=== PATIENT | female | born 1950 | race Caucasian/White ===

== ENCOUNTER → 2017-10-24 | Day surgery (SDC) | payer MEDICARE ==
--- NOTE | 2017-10-23 10:35 | Diagnostic Imaging Report ---
PROCEDURE: X-RAY CHEST, TWO VIEWS COMPARISON: None. INDICATIONS: PREOPERATIVE CHEST XRAY FOR FINGER SURGERY FINDINGS: LUNGS: No consolidations or edema. PLEURA: No effusions or pneumothorax. HEART \T\ MEDIASTINUM: The heart is within normal size-limits. BONES \T\ SOFT TISSUES: No acute findings. Degenerative changes of the thoracic spine with flowing osteophytosis. CONCLUSION: No acute thoracic abnormality. Gerard Cardenas D.O. Dictated by: Gerard Cardenas D.O. on 10/23/2017 at 10:34 Electronically approved by: Gerard Cardenas D.O. on 10/23/2017 at 10:34
[2017-10-23 10:40] LABS: BASOPHILS # (AUTO) 0.1 (0.0-0.1); BASOPHILS % 0.9 % (0.0-1.0); EOSINOPHILS # (AUTO) 0.1 (0.0-0.4); EOSINOPHILS % 1.4 % (0.0-6.0); HEMATOCRIT 39.2 % (34.2-44.1); LYMPHOCYTES # (AUTO) 3.1 (1.0-3.2); LYMPHOCYTES % 30.4 % (18.0-39.1); MEAN CORPUSCULAR HEMOGLOBIN 31.6 pg (28-32); MEAN CORPUSCULAR HGB CONC 33.2 g/dL (31-35); MEAN CORPUSCULAR VOLUME 95.4 fL (81-99); MONOCYTES # (AUTO) 0.7 (0.2-0.8); MONOCYTES % 6.4 % (4.4-11.3); NEUTROPHILS # (AUTO) 6.2 (2.1-6.9); NEUTROPHILS % 60.7 % (38.7-80.0); PLATELET COUNT 408 x10e3/uL (140-360); RED BLOOD COUNT 4.11 x10e6/uL (3.6-5.1); RED CELL DISTRIBUTION WIDTH 13.2 % (11.7-14.4)
[2017-10-23 11:00] LABS: ANION GAP 12.7 mmol/L (8-16); BLOOD UREA NITROGEN 9 mg/dL (7-26); BUN/CREATININE RATIO 12 (6-25); CALCIUM 9.7 mg/dL (8.4-10.2); CARBON DIOXIDE 28 mmol/L (22-29); CHLORIDE 100 mmol/L (98-107); CREATININE, SERUM 0.77 mg/dL (0.57-1.11); EST GLOMERULAR FILTRATION RATE > 60 ML/MIN (60-); GLUCOSE 129 mg/dL (74-118); POTASSIUM 4.7 mmol/L (3.5-5.1); SODIUM 136 mmol/L (136-145)
[~2017-10-24] MED LIST: AMLODIPINE BESYL5 MG PO; ATORVASTATIN CA40 MG PO; BREO INH; CLINDAMYCIN 600MG/D5W 50ML 50 ML IV ONE; DESFLURANE 240 ML BTL INH ONE; DEXAMETHASONE SOD PHOS INJ 4 MG/ML VIAL ONE; FENTANYL CITRATE/PF 100MCG/2 ML INJ ONE; GABAPENTIN300 MG PO; JANUVIA100 MG PO; LIDOCAINE HCL 2% LOCAL INJ 5 ML SDV VIAL INJ ONE; LOSARTAN POTASS50 MG PO; MECLIZINE HCL12.5 MG PO; METFORMIN HCL500 MG PO; MIDAZOLAM HCL 2 MG/2 ML VIAL ONE; OMEPRAZOLE40 MG PO; ONDANSETRON HCL INJ 2 MG/ML VIAL ONE; PROPOFOL IV EMULSION 10 MG/ML 20 ML VIAL ONE; PROZAC40 MG PO; TEMAZEPAM15 MG PO; TYLENOL WITH C1 EACH PO
--- OUTSIDE RECORDS SUMMARY | 2017-10-24 07:06 | XMS REPORT ---
Author Author [facility] Address Unknown Phone Unavailable Care Team Providers Care Aws Architect Name Role Phone KERI HWANG Unavailable Unavailable Problems This patient has no known problems. Allergies, Adverse Reactions, Alerts This patient has no known allergies or adverse reactions. Medications This patient has no known medications. Results Test Description Test Time Test Comments Text Results Atomic Results Result Comments CHEST 2 VIEWS [place] [address] Patient Name: ADRIA ALVAREZ MR #: [id number] : 1950 Age/Sex: 67/F Req #: [id number] Adm Physician: Ordered by: KERI HWANG MD Report #: [id number] Location: OR Room/Bed: Procedure: [id number] DX/ CHEST 2 VIEWS Exam Date: 10/23/17 Exam Time: 1015 REPORT STATUS: Signed PROCEDURE: X-RAY CHEST, TWO VIEWS COMPARISON: None. INDICATIONS: PREOPERATIVE CHEST XRAY FOR FINGER SURGERY FINDINGS: LUNGS: No consolidations or edema. PLEURA: No effusions or pneumothorax. HEART T MEDIASTINUM: The heart is within normal size- limits. BONES T SOFT TISSUES: No acute findings. Degenerative changes of the thoracic spine with flowing osteophytosis. CONCLUSION: No acute thoracic abnormality. Tray Cardenas D.O. Dictated by: Tray Cardenas D.O. on 10/23/2017 at 10:34 Electronically approved by: Tray Cardenas D.O. on 10/23/2017 at 10:34 Dictated By: TRAY CARDENAS DO 1034 Transcribed By: MAIKEL on 10/23/17 1034 COPY TO: KERI HWANG MD
--- NOTE | 2017-10-24 12:51 | Operative Report ---
DATE OF PROCEDURE: October 24, 2017 POLL WATCHER: Jam Huddleston PA-C The patient was brought to the operating room for induction of anesthesia. Throughout this case, my PA's assistance was necessary for retraction of soft tissue and positioning of the extremity. This allows for efficient and technically successful execution of the operation and is considered medically necessary. PREOPERATIVE DIAGNOSIS: Left 3rd trigger finger. POSTOPERATIVE DIAGNOSIS: Left 3rd trigger finger. PROCEDURE: Release of left 3rd trigger finger. INDICATIONS: The patient is a 67-year-old lady who has left 3rd trigger finger. She states that this prevents her from straightening her finger and causes her severe pain. She has failed conservative management and would like to proceed with a surgical release. The risks and benefits of the procedure have been explained. She states she understands and wishes to proceed. DESCRIPTION OF PROCEDURE: The patient was brought to the operating room and placed under general anesthetic. Her left upper extremity was prepped and draped in a sterile manner. A preoperative time out was performed. The extremity was exsanguinated and a proximal tourniquet was inflated to 250 mmHg. A transverse incision was made to over the distal palmar crease. The A1 jake was carefully exposed. Care was taken to avoid injury to the neurovascular bundle. The A1 jake was released sharply with a #15 blade surgical knife. This was completed with a pair of tenotomy scissors. The tendons were retracted from the wound to ensure no further stenosing tenosynovitis. The tendon was intact with very moderate abrading. The wound was irrigated and closed with interrupted nylon stitches. A sterile bandage was applied. She was extubated and transported to the recovery room in stable condition. There was no blood loss. All needle and sponge counts were correct. Job#: [id number] FARNAZ
== END | disposition home or self-care (01) ==
LOC: OR 07:04
PROVIDERS: ATTEND Specialist
DX: M65.332 Trigger finger, left middle finger (principal); J45.909 Unspecified asthma, uncomplicated; E11.9 Type 2 diabetes mellitus without complications; E78.5 Hyperlipidemia, unspecified; I25.2 Old myocardial infarction; R00.1 Bradycardia, unspecified; K21.9 Gastro-esophageal reflux disease without esophagitis; Z01.810 Encounter for preprocedural cardiovascular examination; Z01.812 Encounter for preprocedural laboratory examination; Z01.818 Encounter for other preprocedural examination; Z68.32 Body mass index [BMI] 32.0-32.9, adult; Z90.5 Acquired absence of kidney; Z87.442 Personal history of urinary calculi
CPT/HCPCS: 26055; 36415 ×2; 71046; 80048; 82948; 85025; 93005; J1100; J2001; J2250; J2405

== ENCOUNTER → 2018-02-13 | Day surgery (SDC) | payer MEDICARE ==
[2018-02-07 12:03] LABS: BASOPHILS # (AUTO) 0.1 (0.0-0.1); BASOPHILS % 0.9 % (0.0-1.0); EOSINOPHILS # (AUTO) 0.1 (0.0-0.4); EOSINOPHILS % 1.6 % (0.0-6.0); HEMATOCRIT 35.9 % (34.2-44.1); LYMPHOCYTES # (AUTO) 3.6 (1.0-3.2); LYMPHOCYTES % 40.3 % (18.0-39.1); MEAN CORPUSCULAR HEMOGLOBIN 31.7 pg (28-32); MEAN CORPUSCULAR HGB CONC 33.4 g/dL (31-35); MEAN CORPUSCULAR VOLUME 94.7 fL (81-99); MONOCYTES # (AUTO) 0.7 (0.2-0.8); MONOCYTES % 7.7 % (4.4-11.3); NEUTROPHILS # (AUTO) 4.4 (2.1-6.9); NEUTROPHILS % 49.3 % (38.7-80.0); PLATELET COUNT 359 x10e3/uL (140-360); RED BLOOD COUNT 3.79 x10e6/uL (3.6-5.1)
[2018-02-07 12:22] LABS: ANION GAP 10.3 mmol/L (8-16); BLOOD UREA NITROGEN 9 mg/dL (7-26); BUN/CREATININE RATIO 13 (6-25); CALCIUM 9.6 mg/dL (8.4-10.2); CARBON DIOXIDE 29 mmol/L (22-29); CHLORIDE 104 mmol/L (98-107); CREATININE, SERUM 0.72 mg/dL (0.57-1.11); EST GLOMERULAR FILTRATION RATE > 60 ML/MIN (60-); GLUCOSE 101 mg/dL (74-118); POTASSIUM 4.3 mmol/L (3.5-5.1); SODIUM 139 mmol/L (136-145)
--- NOTE | 2018-02-07 12:32 | Diagnostic Imaging Report ---
PROCEDURE:CHEST 2 VIEWS TECHNIQUE:PA and lateral chest INDICATION:Preoperative evaluation for right foot surgery COMPARISON:Patients [facility], , CHEST 2 VIEWS, 10/23/2017, 10:19. FINDINGS: Lungs are clear and symmetrically inflated. No pleural effusions. Normal heart size, mediastinal contour, and central vasculature. Mildly prominent right pericardial fat pad. Intact skeleton. CONCLUSION: No acute abnormality or interval change from October 2017. Dictated by: Car Vela M.D. on 02/07/2018 at 12:34 Electronically approved by: Car Vela M.D. on 02/07/2018 at 12:34
[~2018-02-13] MED LIST changes: +ACETAMINOPHEN 1000 MG/100 ML 100 ML IV ONE; +BACITRACIN 50,000 UNIT VIAL ONE; +BUPIVACAINE HCL 0.5% INJ 30 ML VIAL INJ ONE; -CLINDAMYCIN 600MG/D5W 50ML 50 ML IV ONE; +CLINDAMYCIN PHOS 900MG/ D5W 50 50 ML IV ONE; -DESFLURANE 240 ML BTL INH ONE; +NEOSTIGMINE 1 MG/ML 10ML VIAL ONE; +SEVOFLURANE INHAL SOLN 250 ML PEN BTL ONE
--- NOTE | 2018-02-13 14:25 | Operative Report ---
DATE OF PROCEDURE: February 13, 2018 PREOPERATIVE DIAGNOSES 1. Hallux rigidus, right foot 1st metatarsophalangeal joint. 2. 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 3. Hammertoe rigid, right foot. POSTOPERATIVE DIAGNOSES 1. Hallux rigidus, right foot 1st metatarsophalangeal joint. 2. 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 3. Hammertoe rigid, right foot. PROCEDURES 1. First metatarsophalangeal joint fusion, right foot. 2. Tenotomy and capsulotomy, 2nd metatarsophalangeal joint, right foot. 3. Arthrodesis of proximal interphalangeal joint, 2nd. 4. Use of posterior splint. PATHOLOGY: None. ANESTHESIA: General anesthetic. HEMOSTASIS: Pneumatic thigh tourniquet at 350 mmHg. ESTIMATED BLOOD LOSS: Less than 10 mL. MATERIALS 1. BIO4 Viable Bone Matrix, lot #[id number], 1 mL, expiration date 25 August 2019. 2. Smart Toe intramedullary arthrodesis implant, lot #[id number]. Date of expiration is going to be 01/01/2022. 3. Screws, 4.0 x 26 mm Fixos screws. 4. [place] MTP plate, 3.0 x 10 locking times 2, 3.0 x 12 locking times 1, 3.0 x 14 locking times 2. COMPLICATIONS: None. CONDITION: Stable. PROCEDURE IN DETAIL: Under mild sedation, the patient was brought to the operating room and placed on the operating table in the supine position. Following IV sedation, anesthesia was obtained with a general anesthetic. At this point, the right foot was scrubbed, prepped and draped in the usual aseptic manner. It was then lowered to the table. First MPJ fusion: Attention was then directed to the dorsal aspect of the right foot, where a linear incision was made overlying the 1st metatarsophalangeal joint. The incision was deepened down to the level of the capsule. Linear capsulotomies were performed. All of this was performed, taking care to retract or cauterize neurovascular structures as necessary. At this point, the MPJ was then exposed. There was noted to be a large amount of synovial tissue and a large amount of osteophyte, all surrounding the MPJ. There was no cartilage, and there were some subchondral cysts. At this point, the joint was prepared utilizing reamers in order to prepare the joint for arthrodesis. The joint was prepared through and through down to clean, viable, bleeding bone. The joint was then fenestrated. A 4.0 x 26 mm Fixos screw was then used for compression of the MTP plate. Five screws were also used. There was noted to be adequate compression clinically and with the use of intraoperative fluoroscopy. Position was also confirmed. Second MPJ tenotomy and capsulotomy: Attention was then directed to the 2nd MPJ. There was noted to be a contracture of the 2nd MPJ. The contracture was released, releasing the capsule at the 2nd MPJ. The extensor tendon was then lengthened. The contracture was then noted to be released. Arthrodesis, PIPJ, right 2nd: Attention was then directed to the PIPJ where a linear incision was made overlying the joint. The incision was deepened to the level of the tendon. The tendon was then tenotomized in a transverse fashion. The joint was then visualized utilizing an oscillating saw. The joint was then prepared for arthrodesis. Arthrodesis was performed with a Smart Toe implant, 19 mm. There was noted to be adequate compression clinically and with the use of intraop fluoroscopy and adequate alignment. All incisions were then flushed with copious amounts of normal sterile saline solution. At the MPJ fusion, BIO4, 1 mL, was then used to promote arthrodesis to the area. All areas were then closed, closing the deepest layer with 3-0 Vicryl, 4-0 Vicryl, and 4-0 nylon. A clean dressing was applied consisting of Adaptic ointment, 4 x 4's, Kerlix, Webril. A posterior splint was applied and was secured utilizing an Feng bandage. The tourniquet was deflated. There was noted to be hyperemic response to all the digits. The patient tolerated the procedure and the anesthesia well without complications and was transported to the recovery room with vital signs stable and vascular status intact to both feet. The patient will be discharged home when she meets criteria. She was given instructions to be strictly nonweightbearing, to ice and elevate the foot while at rest, to follow up with me in the office, and to call the office if any questions, concerns or any problems arise. Job#: [id number] MH
== END | disposition home or self-care (01) ==
LOC: OR 08:01
PROVIDERS: ATTEND Podiatrist Foot & Ankle Surgery
DX: M20.21 Hallux rigidus, right foot (principal); M21.271 Flexion deformity, right ankle and toes; M20.41 Other hammer toe(s) (acquired), right foot; M25.774 Osteophyte, right foot; M54.9 Dorsalgia, unspecified; H91.90 Unspecified hearing loss, unspecified ear; J45.909 Unspecified asthma, uncomplicated; G47.33 Obstructive sleep apnea (adult) (pediatric); E11.9 Type 2 diabetes mellitus without complications; I25.10 Atherosclerotic heart disease of native coronary artery without angina pectoris; I10 Essential (primary) hypertension; I48.91 Unspecified atrial fibrillation; K21.9 Gastro-esophageal reflux disease without esophagitis; F41.9 Anxiety disorder, unspecified; Z88.0 Allergy status to penicillin; Z87.891 Personal history of nicotine dependence; Z79.84 Long term (current) use of oral hypoglycemic drugs
CPT/HCPCS: 28270; 28285; 28750; 36415 ×2; 71046; 80048; 82948; 85025; 93005; C1713 ×3; J1100; J2001; J2250; J2405; J2710; 76001

== ENCOUNTER → 2018-10-23 | Day surgery (SDC) | payer MEDICARE ==
[2018-10-18 12:10] LABS: BASOPHILS # (AUTO) 0.1 (0.0-0.1); BASOPHILS % 0.9 % (0.0-1.0); EOSINOPHILS # (AUTO) 0.2 (0.0-0.4); EOSINOPHILS % 2.5 % (0.0-6.0); HEMATOCRIT 37.2 % (34.2-44.1); HEMOGLOBIN 12.2 g/dL (12.0-16.0); LYMPHOCYTES # (AUTO) 3.2 (1.0-3.2); LYMPHOCYTES % 32.3 % (18.0-39.1); MEAN CORPUSCULAR HEMOGLOBIN 31.7 pg (28-32); MEAN CORPUSCULAR HGB CONC 32.8 g/dL (31-35); MEAN CORPUSCULAR VOLUME 96.6 fL (81-99); MONOCYTES # (AUTO) 0.9 (0.2-0.8); MONOCYTES % 9.4 % (4.4-11.3); NEUTROPHILS # (AUTO) 5.3 (2.1-6.9); NEUTROPHILS % 54.7 % (38.7-80.0); PLATELET COUNT 374 x10e3/uL (140-360); RED BLOOD COUNT 3.85 x10e6/uL (3.6-5.1); RED CELL DISTRIBUTION WIDTH 13.9 % (11.7-14.4)
[2018-10-18 12:20] LABS: ANION GAP 14.7 mmol/L (8-16); BLOOD UREA NITROGEN 8 mg/dL (7-26); BUN/CREATININE RATIO 11 (6-25); CALCIUM 9.1 mg/dL (8.4-10.2); CARBON DIOXIDE 23 mmol/L (22-29); CHLORIDE 104 mmol/L (98-107); CREATININE, SERUM 0.74 mg/dL (0.57-1.11); EST GLOMERULAR FILTRATION RATE > 60 ML/MIN (60-); GLUCOSE 158 mg/dL (74-118); POTASSIUM 3.7 mmol/L (3.5-5.1); SODIUM 138 mmol/L (136-145)
[~2018-10-23] MED LIST changes: -ACETAMINOPHEN 1000 MG/100 ML 100 ML IV ONE; +ACETAMINOPHEN/CODEINE 300MG - 30MG TAB ONE; +ALENDRONATE SOD70 MG PO; -BACITRACIN 50,000 UNIT VIAL ONE; +BRIO PO; +BUPIVACAINE 0.25% 30ML SDV INJ ONE; -BUPIVACAINE HCL 0.5% INJ 30 ML VIAL INJ ONE; +CLINDAMYCIN 600MG / 50ML 50 ML IV ONE; -CLINDAMYCIN PHOS 900MG/ D5W 50 50 ML IV ONE; +MULTI-VITAMIN1 EACH PO; +NAPROXEN250 MG PO; -NEOSTIGMINE 1 MG/ML 10ML VIAL ONE; -ONDANSETRON HCL INJ 2 MG/ML VIAL ONE; +ONDANSETRON HCL INJ 2MG/ML 2ML 2 MG/ML VIAL ONE
[2018-10-23 13:25] VITALS: BP 130/80
--- NOTE | 2018-10-23 13:30 | Operative Report ---
DATE OF PROCEDURE: 10/23/2018 MAGNETIC LOCATER: Jam Huddleston PA-C PREOPERATIVE DIAGNOSIS: Left fourth trigger finger. POSTOPERATIVE DIAGNOSIS: Left fourth trigger finger. PROCEDURE: Release of left fourth trigger finger. INDICATIONS: The patient is a 68-year-old lady, who has clinical signs and symptoms consistent with a left fourth trigger finger. She has failed conservative management and would like to proceed with a surgical release. The risks and benefits have been explained. She states she understands and wishes to proceed. DESCRIPTION OF PROCEDURE: The patient was brought to the operating room and placed under general anesthetic. Her left upper extremity was prepped and draped in a sterile manner. A preoperative time-out was performed. The extremity was exsanguinated and the proximal tourniquet was briefly inflated to 250 mmHg. An incision was made in line with the fourth finger around the distal palmar crease. The A1 jake was carefully dissected out. This was completely released with a 15-blade surgical knife. The tendon was retracted from the wound. There was some minor irritation and fraying, but otherwise the tendon could be fully extracted from the wound without any further catching or stenosing tenosynovitis. The finger could easily be placed into full extension. The wound was closed with 2 interrupted nylon stitches. Approximately 2 mL of 0.5% Marcaine without epinephrine were injected around the incision. A sterile bandage was applied. She was extubated and transported to the recovery room in stable condition. There was no blood loss, and all needle and sponge counts were correct. Dieudonne Mc MD DR/JOHN /[id number]
== END | disposition home or self-care (01) ==
LOC: OR 08:25
PROVIDERS: ATTEND Specialist
DX: M65.342 Trigger finger, left ring finger (principal); E11.9 Type 2 diabetes mellitus without complications; Z79.84 Long term (current) use of oral hypoglycemic drugs; K21.9 Gastro-esophageal reflux disease without esophagitis; K44.9 Diaphragmatic hernia without obstruction or gangrene; J45.909 Unspecified asthma, uncomplicated; F41.8 Other specified anxiety disorders; I10 Essential (primary) hypertension; E78.5 Hyperlipidemia, unspecified; I83.90 Asymptomatic varicose veins of unspecified lower extremity; Z88.0 Allergy status to penicillin; Z01.810 Encounter for preprocedural cardiovascular examination; Z01.812 Encounter for preprocedural laboratory examination
CPT/HCPCS: 26055; 36415 ×2; 80048; 82948; 85025; 93005; J1100; J2001; J2250; J2405; J2704

== ENCOUNTER → 2019-02-08 | Day surgery (SDC) | payer MEDICARE ==
[2019-02-05 12:00] LABS: BASOPHILS # (AUTO) 0.1 (0.0-0.1); BASOPHILS % 0.7 % (0.0-1.0); EOSINOPHILS # (AUTO) 0.1 (0.0-0.4); EOSINOPHILS % 1.3 % (0.0-6.0); HEMATOCRIT 34.3 % (34.2-44.1); HEMOGLOBIN 11.6 g/dL (12.0-16.0); LYMPHOCYTES # (AUTO) 3.4 (1.0-3.2); LYMPHOCYTES % 35.6 % (18.0-39.1); MEAN CORPUSCULAR HEMOGLOBIN 31.6 pg (28-32); MEAN CORPUSCULAR HGB CONC 33.8 g/dL (31-35); MEAN CORPUSCULAR VOLUME 93.5 fL (81-99); MONOCYTES # (AUTO) 0.9 (0.2-0.8); NEUTROPHILS # (AUTO) 5.1 (2.1-6.9); PLATELET COUNT 379 x10e3/uL (140-360); RED BLOOD COUNT 3.67 x10e6/uL (3.6-5.1)
[2019-02-05 12:15] LABS: ANION GAP 11.4 mmol/L (8-16); BLOOD UREA NITROGEN 8 mg/dL (7-26); BUN/CREATININE RATIO 11 (6-25); CALCIUM 9.4 mg/dL (8.4-10.2); CARBON DIOXIDE 26 mmol/L (22-29); CHLORIDE 99 mmol/L (98-107); CREATININE, SERUM 0.73 mg/dL (0.57-1.11); EST GLOMERULAR FILTRATION RATE > 60 ML/MIN (60-); GLUCOSE 100 mg/dL (74-118); POTASSIUM 3.4 mmol/L (3.5-5.1); SODIUM 133 mmol/L (136-145)
--- NOTE | 2019-02-05 12:42 | Diagnostic Imaging Report ---
EXAMINATION: PA and lateral views of the chest. COMPARISON: None CLINICAL HISTORY: Preoperative study for foot surgery DISCUSSION: Lines/tubes: None. Lungs: The lungs are well inflated and clear. There is no evidence of pneumonia or pulmonary edema. Pleura: There is no pleural effusion or pneumothorax. Heart and mediastinum: Opacity along the right and left heart borders likely reflects prominent epicardial fat. Otherwise normal cardiomediastinal contour. Bones and soft tissues: No acute bony abnormalities. Degenerative changes in the thoracic spine IMPRESSION: No acute cardiopulmonary abnormalities. Signed by: Dr. Dieudonne Johansen M.D. on 02/05/2019 12:38 PM
[~2019-02-08] MED LIST changes: +ACETAMINOPHEN 1000 MG/100 ML 100 ML IV ONE; -ACETAMINOPHEN/CODEINE 300MG - 30MG TAB ONE; -BUPIVACAINE 0.25% 30ML SDV INJ ONE; +BUPIVACAINE HCL 0.5% 10ML MPF VIAL INJ ONE; -CLINDAMYCIN 600MG / 50ML 50 ML IV ONE; +CLINDAMYCIN PHOS 900MG/ 50ML 50 ML IV ONE; +EPHEDRINE SULFATE INJ 50 MG/10 ML SYR ONE; +HYDROMORPHONE 2MG/ML 2 MG/ML ML ONE; +NEOSTIGMINE 1 MG/ML 10ML VIAL ONE
[2019-02-08 13:10] VITALS: BP 99/58
--- NOTE | 2019-02-08 21:03 | Operative Report ---
DATE OF PROCEDURE: 02/08/2019 SURGEON: Ayaz Watters DPM PREOPERATIVE DIAGNOSES: 1. Ankle joint synovitis, right ankle. 2. Ruptured anterior talofibular ligament, right ankle. 3. Ruptured peroneal tendon, right foot. POSTOPERATIVE DIAGNOSES: 1. Ankle joint synovitis, right ankle. 2. Ruptured anterior talofibular ligament, right ankle. 3. Ruptured peroneal tendon, right foot. TITLE OF OPERATION: 1. Ankle joint arthroscopy with debridement of hypertrophic synovium, right foot. 2. Repair of the anterior talofibular ligament, right foot. 3. Repair of peroneal tendon, right foot. PROCEDURE IN DETAIL: The patient was taken to the operating room in a mildly sedated state, placed upon the operating table in supine position. Following induction of general anesthetic, the right lower extremity was elevated to 60 degrees to exsanguinate before inflating the pneumatic thigh tourniquet to 350 mmHg to create good hemostasis. The right lower extremity was evaluated and under fluoroscopy, it was noted that the ankle joint positioning was adequate for the procedure. The ankle was insufflated with 60 mL of injectable saline to insufflate and then utilizing a standard technique with a joint insufflator set at 60 mmHg. The ankle joint was approached with two portals, one anterior medial and one anterior lateral. Both portals were utilized to irrigate the ankle joint completely and a debrider was used to excise all hypertrophic synovium. Medial and lateral gutters were cleaned of impingement and the external plica was debrided. The dome of the talus looked adequate with no obvious talar dome lesions. After full debridement, the wound was flushed, decompressed, and closed with combination of suture techniques with nylon suture. Attention was then directed to the lateral aspect of the foot at the anterior talofibular ligament. This had been previously marked before inflating the tourniquet and a transverse oblique incision was placed overlying the ligament itself. This was then dissected down to the ligament at the lateral anterior aspect of the fibula. This area was then evaluated and the ruptured segment of the anterior talofibular ligament was excised and debrided. Arthrex anchor was inserted on the lateral aspect of the fibula and the appropriate Bio-Corkscrew anchor was inserted 3.7. That area was then closed utilizing a gbnaj-eftn-wneg type closure. Excellent strength and tightness achieved with the foot held in eversion and the patient tolerated the procedure well. The area was irrigated. Deep closure with 3-0 Vicryl, subcutaneous closure with 4-0 Vicryl, and skin closure with 4-0 nylon. Attention was then directed to the area posterior to the fibula where the brevis tendon had been noted to have ruptured on MRI. Incision was placed and the ruptured tendon delivered in the surgical site, debrided and utilizing a #2 FiberWire, it was repaired. That repair and closure were done in such a way as to pull the longitudinal tear together after debridement. This having been accomplished, the area was irrigated with copious amounts of sterile solution and deep closure as well as repair of the peroneal retinaculum was performed with 3-0 Vicryl, subcutaneous closure of 4-0 Vicryl and skin closure with 4-0 nylon was performed. Human tissue allograft was placed along the course of the repair to facilitate repair as well as in the area of the actual anterior talofibular ligament repair. This having been accomplished, the closure noted to be excellent. A posterior splint was applied. Appropriate mildly compressive dressings were applied. Release of the pneumatic thigh tourniquet showed a normal hyperemic flush to all the digits of the right foot and the patient left the operating room with vital signs stable in apparent satisfactory condition having tolerated both anesthetic and procedure very well. SOO Poe/JOHN /[id number]
== END | disposition home or self-care (01) ==
LOC: OR 06:01
PROVIDERS: ATTEND Podiatrist Foot Surgery
DX: S93.491A Sprain of other ligament of right ankle, initial encounter (principal); S96.811A Strain of other specified muscles and tendons at ankle and foot level, right foot, initial encounter; M65.871 Other synovitis and tenosynovitis, right ankle and foot; E11.9 Type 2 diabetes mellitus without complications; J44.9 Chronic obstructive pulmonary disease, unspecified; G47.33 Obstructive sleep apnea (adult) (pediatric); R42 Dizziness and giddiness; H91.90 Unspecified hearing loss, unspecified ear; K21.9 Gastro-esophageal reflux disease without esophagitis; I10 Essential (primary) hypertension; F41.9 Anxiety disorder, unspecified; F32.9 Major depressive disorder, single episode, unspecified; F17.210 Nicotine dependence, cigarettes, uncomplicated; X58.XXXA Exposure to other specified factors, initial encounter; Z88.0 Allergy status to penicillin; Z01.810 Encounter for preprocedural cardiovascular examination; Z01.812 Encounter for preprocedural laboratory examination; Z01.818 Encounter for other preprocedural examination; Z90.5 Acquired absence of kidney
CPT/HCPCS: 27695; 28200; 29897; 36415 ×2; 71046; 80048; 82948; 85025; 93005; J0131; J1100; J1170; J2001; J2250; J2405; J2704; J2710

== ENCOUNTER → 2019-07-19 | Day surgery (SDC) | payer MEDICARE ==
[2019-07-18 15:21] LABS: BASOPHILS # (AUTO) 0.1 (0.0-0.1); BASOPHILS % 0.5 % (0.0-1.0); EOSINOPHILS # (AUTO) 0.2 (0.0-0.4); EOSINOPHILS % 1.8 % (0.0-6.0); HEMATOCRIT 33.6 % (34.2-44.1); HEMOGLOBIN 11.2 g/dL (12.0-16.0); LYMPHOCYTES # (AUTO) 4.1 (1.0-3.2); LYMPHOCYTES % 43.9 % (18.0-39.1); MEAN CORPUSCULAR HEMOGLOBIN 31.7 pg (28-32); MEAN CORPUSCULAR HGB CONC 33.3 g/dL (31-35); MEAN CORPUSCULAR VOLUME 95.2 fL (81-99); MONOCYTES # (AUTO) 0.9 (0.2-0.8); MONOCYTES % 9.6 % (4.4-11.3); NEUTROPHILS # (AUTO) 4.1 (2.1-6.9); PLATELET COUNT 361 x10e3/uL (140-360); RED BLOOD COUNT 3.53 x10e6/uL (3.6-5.1); RED CELL DISTRIBUTION WIDTH 12.6 % (11.7-14.4)
[2019-07-18 15:39] LABS: ALANINE AMINOTRANSFERASE 22 IU/L (0-55); ALBUMIN 3.9 g/dL (3.5-5.0); ALBUMIN/GLOBULIN RATIO 1.2 (0.8-2.0); ALKALINE PHOSPHATASE 51 IU/L (40-150); ANION GAP 12.5 mmol/L (8-16); BLOOD UREA NITROGEN 10 mg/dL (7-26); BUN/CREATININE RATIO 13 (6-25); CALCIUM 9.4 mg/dL (8.4-10.2); CARBON DIOXIDE 26 mmol/L (22-29); CHLORIDE 97 mmol/L (98-107); CREATININE, SERUM 0.79 mg/dL (0.57-1.11); EST GLOMERULAR FILTRATION RATE > 60 ML/MIN (60-); GLUCOSE 111 mg/dL (74-118); POTASSIUM 3.5 mmol/L (3.5-5.1); SODIUM 132 mmol/L (136-145)
[~2019-07-19] MED LIST changes: +BRIO INH; -BRIO PO; -BUPIVACAINE HCL 0.5% 10ML MPF VIAL INJ ONE; +BUPIVACAINE HCL 0.5% INJ 30 ML VIAL INJ ONE; -CLINDAMYCIN PHOS 900MG/ 50ML 50 ML IV ONE; +DESFLURANE 240 ML BTL INH ONE; -HYDROMORPHONE 2MG/ML 2 MG/ML ML ONE; +LEVOFLOXACIN 500MG/D5W 100ML 100 ML IV ONE; +LYRICA50 MG PO; +MEPERIDINE HCL INJ 25 MG/ML VIAL ONE; +MORPHINE SULFATE 2 MG/ML SYR 1ML ONE; -NEOSTIGMINE 1 MG/ML 10ML VIAL ONE; +ROCURONIUM BROMIDE 10 MG/ML 5ML VIAL ONE; -SEVOFLURANE INHAL SOLN 250 ML PEN BTL ONE; +SUGAMMADEX SODIUM 200 MG/2 ML VIAL IV ONE
[2019-07-19 15:45] VITALS: BP 110/71
--- NOTE | 2019-07-19 19:59 | Operative Report ---
DATE OF PROCEDURE: 07/19/2019 SURGEON: Dieudonne Grullon MD PREOPERATIVE DIAGNOSES: Chronic cholecystitis and cholelithiasis. POSTOPERATIVE DIAGNOSES: Chronic cholecystitis and cholelithiasis with extensive adhesions. PROCEDURES: Diagnostic laparoscopy, laparoscopic lysis of adhesions, and laparoscopic cholecystectomy. CHIROPRACTIC CARE: None. ANESTHESIA: General endotracheal. INDICATIONS AND FINDINGS: The patient is a 69-year-old female, who has had complaints of right upper quadrant abdominal pain for several weeks. Workup revealed gallstones. The patient was found to have extensive adhesions from previous surgery filling almost the peritoneal cavity going to small area in the right upper quadrant with no adhesions. Adhesions of omentum and transverse colon, which were lysed, so the laparoscopic surgery could be done. A large stone impacting the gallbladder neck. TECHNIQUE: After adequate general endotracheal anesthesia and the patient in supine position, the abdomen was prepped and draped in sterile fashion with ChloraPrep solution in the right upper quadrant well away from the areas of previous surgery. Skin and subcutaneous tissue were infiltrated with 0.5% Marcaine. Incision was made. Abdominal wall was elevated and Veress needle was introduced. Pneumoperitoneum was then created. A 5-mm trocar and cannula were then passed through this wound. Laparoscopic camera was introduced. Initial laparoscopy revealed the liver to be normal. There were extensive adhesions filling up most of the peritoneal cavity that could be seen from this area with only a small area around where the gallbladder was with no adhesions. A 10-mm trocar and cannula were placed in the epigastrium under direct vision. The adhesions were lysed using scissors freeing the upper abdomen from the adhesions down to the mid epigastrium to a point where additional trocar could be placed to visualize the gallbladder. Gallbladder was also involved with adhesions. Once the adhesions were lysed, a 10-mm trocar and cannula were placed in the mid epigastrium and then additional 5-mm trocar and cannula placed in the right upper quadrant. The gallbladder was grasped and retracted superiorly. The adhesions of the gallbladder were lysed using scissors and electrocautery. Neck of the gallbladder was grasped and retracted laterally. Peritoneum over the neck of the gallbladder was incised. The gallbladder cystic duct junction was dissected free. Cystic artery was also dissected free. The neck of the gallbladder completely dissected free. Cystic duct was divided between Hemoclips with three clips left on the common bile duct side. Cystic artery was also divided between Hemoclips close to the gallbladder. The gallbladder was dissected free from the liver using scissors and electrocautery. Once it was entirely free, it was placed into an Endopouch and brought out through the epigastric cannula. There was at least one stone. Gallbladder bed was inspected for hemostasis, which was seen to be adequate. It was irrigated with saline. All fluid aspirated and inspected once again for hemostasis, which was seen to be adequate. Instruments and cannulas were removed. Pneumoperitoneum was evacuated. Wounds were then closed. Fascia in the larger trocar wounds closed with #0 Vicryl. Skin to all wounds closed with 4-0 Vicryl in subcuticular fashion. Dermabond and sterile dressing were applied to each wound. The patient tolerated the procedure well. Estimated blood loss was 20 mL. There were no complications. All counts were correct and the patient was taken to the recovery room in satisfactory condition. MD MICHELA Gonzalez/JOHN /[id number] cc: Dieudonne Betancur
== END | disposition home or self-care (01) ==
LOC: OR 10:44
PROVIDERS: ATTEND Surgery
DX: K80.10 Calculus of gallbladder with chronic cholecystitis without obstruction (principal); Z88.0 Allergy status to penicillin; Z01.810 Encounter for preprocedural cardiovascular examination; Z01.812 Encounter for preprocedural laboratory examination; E11.42 Type 2 diabetes mellitus with diabetic polyneuropathy; K21.9 Gastro-esophageal reflux disease without esophagitis; J44.9 Chronic obstructive pulmonary disease, unspecified; I10 Essential (primary) hypertension; K82.8 Other specified diseases of gallbladder; Z79.84 Long term (current) use of oral hypoglycemic drugs
CPT/HCPCS: 36415 ×2; 47562; 49329; 80053; 82948; 85025; 88304; 93005; J0131; J1100; J1956; J2001; J2175; J2250; J2270; J2405; J2704; J3010

== ENCOUNTER → 2020-03-16 | Day surgery (SDC) | payer MEDICARE, OTHER ==
--- NOTE | 2020-03-11 16:07 | Diagnostic Imaging Report ---
EXAMINATION: CHEST 2 VIEWS INDICATION: ^[id number] ^[id number] ^PRE-OP COMPARISON: 02/05/2019 FINDINGS: PA and lateral views TUBES and LINES: None. LUNGS: Lungs are well inflated. There is no evidence of pneumonia or pulmonary edema. PLEURA: No pleural effusion or pneumothorax. HEART AND MEDIASTINUM: The cardiomediastinal silhouette is unremarkable. BONES AND SOFT TISSUES: No acute osseous lesion. Degenerative changes of thoracic spine. Soft tissues are unremarkable. UPPER ABDOMEN: No free air under the diaphragm. IMPRESSION: No acute thoracic abnormality. No change from prior exam. Signed by: Dr. Jeffrey Piper MD on 03/11/2020 4:04 PM
[2020-03-11 16:19] LABS: ANION GAP 12.8 mmol/L (8-16); BLOOD UREA NITROGEN 10 mg/dL (7-26); BUN/CREATININE RATIO 12 (6-25); CARBON DIOXIDE 25 mmol/L (22-29); CHLORIDE 102 mmol/L (98-107); CREATININE, SERUM 0.81 mg/dL (0.57-1.11); EST GLOMERULAR FILTRATION RATE > 60 ML/MIN (60-); GLUCOSE 109 mg/dL (74-118); POTASSIUM 3.8 mmol/L (3.5-5.1); SODIUM 136 mmol/L (136-145)
[2020-03-11 16:25] LABS: BASOPHILS # (AUTO) 0.1 (0.0-0.1); BASOPHILS % 0.6 % (0.0-1.0); EOSINOPHILS # (AUTO) 0.2 (0.0-0.4); EOSINOPHILS % 0.9 % (0.0-6.0); HEMATOCRIT 36.6 % (34.2-44.1); HEMOGLOBIN 11.8 g/dL (12.0-16.0); LYMPHOCYTES # (AUTO) 4.6 (1.0-3.2); LYMPHOCYTES % 26.8 % (18.0-39.1); MEAN CORPUSCULAR HEMOGLOBIN 30.6 pg (28-32); MEAN CORPUSCULAR HGB CONC 32.2 g/dL (31-35); MEAN CORPUSCULAR VOLUME 95.1 fL (81-99); MONOCYTES % 5.8 % (4.4-11.3); NEUTROPHILS # (AUTO) 11.3 (2.1-6.9); NEUTROPHILS % 65.4 % (38.7-80.0); PLATELET COUNT 389 x10e3/uL (140-360); RED BLOOD COUNT 3.85 x10e6/uL (3.6-5.1); RED CELL DISTRIBUTION WIDTH 14.1 % (11.7-14.4)
[~2020-03-16] MED LIST changes: -ACETAMINOPHEN 1000 MG/100 ML 100 ML IV ONE; +ACETAMINOPHEN/CODEINE 300MG - 30MG TAB ONE; +CLINDAMYCIN 600MG / 50ML 50 ML IV ONE; -DESFLURANE 240 ML BTL INH ONE; -DEXAMETHASONE SOD PHOS INJ 4 MG/ML VIAL ONE; -EPHEDRINE SULFATE INJ 50 MG/10 ML SYR ONE; +ETOMIDATE 2 MG/ML 10 ML INJ IV ONE; -FENTANYL CITRATE/PF 100MCG/2 ML INJ ONE; +HYDROCHLOROTHIA25 MG PO; -LEVOFLOXACIN 500MG/D5W 100ML 100 ML IV ONE; -MEPERIDINE HCL INJ 25 MG/ML VIAL ONE; -MIDAZOLAM HCL 2 MG/2 ML VIAL ONE; -MORPHINE SULFATE 2 MG/ML SYR 1ML ONE; +NORTRIPTYLINE H50 MG PO; +PANTOPRAZOLE SO40 MG PO; -ROCURONIUM BROMIDE 10 MG/ML 5ML VIAL ONE; +SEVOFLURANE INHAL SOLN 250 ML PEN BTL ONE; -SUGAMMADEX SODIUM 200 MG/2 ML VIAL IV ONE
[2020-03-16 06:12] LABS: BASOPHILS # (AUTO) 0.1 (0.0-0.1); BASOPHILS % 0.9 % (0.0-1.0); EOSINOPHILS # (AUTO) 0.3 (0.0-0.4); EOSINOPHILS % 3.6 % (0.0-6.0); HEMATOCRIT 38.3 % (34.2-44.1); HEMOGLOBIN 12.4 g/dL (12.0-16.0); LYMPHOCYTES # (AUTO) 3.2 (1.0-3.2); LYMPHOCYTES % 40.6 % (18.0-39.1); MEAN CORPUSCULAR HEMOGLOBIN 30.6 pg (28-32); MEAN CORPUSCULAR HGB CONC 32.4 g/dL (31-35); MEAN CORPUSCULAR VOLUME 94.6 fL (81-99); MONOCYTES # (AUTO) 0.8 (0.2-0.8); MONOCYTES % 10.2 % (4.4-11.3); NEUTROPHILS # (AUTO) 3.5 (2.1-6.9); NEUTROPHILS % 44.3 % (38.7-80.0); PLATELET COUNT 414 x10e3/uL (140-360); RED BLOOD COUNT 4.05 x10e6/uL (3.6-5.1); RED CELL DISTRIBUTION WIDTH 13.7 % (11.7-14.4)
[2020-03-16 08:30] VITALS: BP 122/70
--- NOTE | 2020-03-16 08:52 | Operative Report ---
DATE OF PROCEDURE: SURGEON: Dieudonne Mc MD MELTING FURNACE SKIMMER: Jam Huddleston, certified PA PREOPERATIVE DIAGNOSIS: Right 3rd and 4th trigger finger. POSTOPERATIVE DIAGNOSIS: Right 3rd and 4th trigger finger. PROCEDURE: Release right 3rd and 4th trigger finger. INDICATIONS: The patient is a 69-year-old lady, who has clinic signs and symptoms consistent with right 3rd and 4th trigger finger. The findings and options have been discussed with the patient. She has failed conservative management and would like to proceed with surgical release. The risks and benefits have been discussed. She states she understands and wishes to proceed. PROCEDURE IN DETAIL: The patient was brought to the operating room and placed under general anesthetic. Her right upper extremity was prepped and draped in a sterile manner. A preoperative time-out was performed. The extremity was exsanguinated and a proximal tourniquet was inflated to 250 mmHg. An incision was made around the distal palmar crease in line with the 3rd and 4th finger. The A1 jake was exposed in each. This was released using a 15 blade surgical knife. This was completed with a pair of tenotomy scissors. Both tendons were retracted from the wound and noted to have no further stenosing tenosynovitis. The wounds were closed with two interrupted nylon stitches each. A 5 mL of 0.5% Marcaine without epinephrine was used to perform a digital block. The patient was placed in a sterile bandage. She was extubated and transported to the recovery room in stable condition. There was no blood loss and all needle and sponge counts were correct. Dieudonne Mc MD DR/JOHN /[id number]
== END | disposition home or self-care (01) ==
LOC: OR 05:08
PROVIDERS: ATTEND Specialist
DX: M65.331 Trigger finger, right middle finger (principal); M65.341 Trigger finger, right ring finger; M54.89 Other dorsalgia; M19.90 Unspecified osteoarthritis, unspecified site; J45.909 Unspecified asthma, uncomplicated; I10 Essential (primary) hypertension; E78.5 Hyperlipidemia, unspecified; E11.9 Type 2 diabetes mellitus without complications; R42 Dizziness and giddiness; K21.9 Gastro-esophageal reflux disease without esophagitis; F32.9 Major depressive disorder, single episode, unspecified; F17.210 Nicotine dependence, cigarettes, uncomplicated; Z88.0 Allergy status to penicillin; Z01.810 Encounter for preprocedural cardiovascular examination; Z01.812 Encounter for preprocedural laboratory examination; Z01.818 Encounter for other preprocedural examination; Z11.59 Encounter for screening for other viral diseases; Z79.84 Long term (current) use of oral hypoglycemic drugs; Z68.37 Body mass index [BMI] 37.0-37.9, adult
CPT/HCPCS: 26055 ×2; 36415 ×2; 71046; 80048; 82948; 85025 ×2; 93005; J2001; J2405; J2704; U0002

== ENCOUNTER → 2021-02-05 | Day surgery (SDC) | payer MEDICARE ==
[2021-02-03 15:46] LABS: BASOPHILS # (AUTO) 0.1 (0.0-0.1); BASOPHILS % 0.5 % (0.0-1.0); EOSINOPHILS # (AUTO) 0.1 (0.0-0.4); HEMATOCRIT 35.6 % (34.2-44.1); HEMOGLOBIN 11.7 g/dL (12.0-16.0); LYMPHOCYTES # (AUTO) 3.9 (1.0-3.2); LYMPHOCYTES % 30.6 % (18.0-39.1); MEAN CORPUSCULAR HEMOGLOBIN 31.5 pg (28-32); MEAN CORPUSCULAR HGB CONC 32.9 g/dL (31-35); MONOCYTES # (AUTO) 0.9 (0.2-0.8); MONOCYTES % 7.1 % (4.4-11.3); NEUTROPHILS # (AUTO) 7.7 (2.1-6.9); NEUTROPHILS % 60.4 % (38.7-80.0); PLATELET COUNT 375 x10e3/uL (140-360); RED BLOOD COUNT 3.71 x10e6/uL (3.6-5.1); RED CELL DISTRIBUTION WIDTH 13.3 % (11.7-14.4)
[2021-02-03 16:19] LABS: ANION GAP 14.1 mmol/L (8-16); BLOOD UREA NITROGEN 10 mg/dL (7-26); BUN/CREATININE RATIO 13 (6-25); CALCIUM 9.6 mg/dL (8.4-10.2); CARBON DIOXIDE 25 mmol/L (22-29); CHLORIDE 98 mmol/L (98-107); CREATININE, SERUM 0.78 mg/dL (0.57-1.11); EST GLOMERULAR FILTRATION RATE > 60 ML/MIN (60-); GLUCOSE 94 mg/dL (74-118); POTASSIUM 4.1 mmol/L (3.5-5.1); SODIUM 133 mmol/L (136-145)
[~2021-02-05] MED LIST changes: -ACETAMINOPHEN/CODEINE 300MG - 30MG TAB ONE; +ATIVAN0.5 MG PO; -CLINDAMYCIN 600MG / 50ML 50 ML IV ONE; +DEXAMETHASONE SOD PHOS INJ 4 MG/ML VIAL ONE; -ETOMIDATE 2 MG/ML 10 ML INJ IV ONE; +FENTANYL CITRATE/PF 100MCG/2 ML INJ ONE; +KETOROLAC TROMETHAMINE 30 MG/ML VIAL ONE; +NEOSTIGMINE 1 MG/ML 10ML VIAL ONE; +POVIDONE IODINE 0.05% 0.05 % ML PO ONE; +VANCOMYCIN 1GM/NS 250 ML 250 ML ONE
[2021-02-05 09:30] VITALS: BP 94/70
== END | disposition home or self-care (01) ==
LOC: OR 05:32
PROVIDERS: ATTEND Podiatrist Foot Surgery
DX: M20.12 Hallux valgus (acquired), left foot (principal); M19.072 Primary osteoarthritis, left ankle and foot; I49.3 Ventricular premature depolarization; J44.9 Chronic obstructive pulmonary disease, unspecified; I25.2 Old myocardial infarction; I10 Essential (primary) hypertension; E11.9 Type 2 diabetes mellitus without complications; F41.9 Anxiety disorder, unspecified; F32.9 Major depressive disorder, single episode, unspecified; Z88.0 Allergy status to penicillin; Z01.810 Encounter for preprocedural cardiovascular examination; Z01.812 Encounter for preprocedural laboratory examination; Z01.818 Encounter for other preprocedural examination; Z20.822 Contact with and (suspected) exposure to COVID-19
CPT/HCPCS: 28292; 36415 ×2; 71046; 80048; 82948; 85025; 93005; J1100; J1885; J2001; J2405; J2704; J2710; J3010; J3370; U0002; 76000

== ENCOUNTER → 2022-12-26 | Day surgery (SDC) | payer MEDICARE ==
[2022-12-21 11:59] LABS: BASOPHILS # (AUTO) 0.1 (0.0-0.1); BASOPHILS % 0.5 % (0.0-1.0); EOSINOPHILS # (AUTO) 0.2 (0.0-0.4); EOSINOPHILS % 0.9 % (0.0-6.0); HEMATOCRIT 34.4 % (34.2-44.1); HEMOGLOBIN 11.1 g/dL (12.0-16.0); LYMPHOCYTES # (AUTO) 2.8 (1.0-3.2); MEAN CORPUSCULAR HEMOGLOBIN 30.7 pg (28-32); MEAN CORPUSCULAR HGB CONC 32.3 g/dL (31-35); MONOCYTES # (AUTO) 0.9 (0.2-0.8); MONOCYTES % 5.2 % (4.4-11.3); NEUTROPHILS # (AUTO) 13.2 (2.1-6.9); NEUTROPHILS % 77.1 % (38.7-80.0); PLATELET COUNT 341 x10e3/uL (140-360); RED BLOOD COUNT 3.62 x10e6/uL (3.6-5.1)
[2022-12-21 12:31] LABS: ANION GAP 11.8 mmol/L (8-16); CALCIUM 9.4 mg/dL (8.4-10.2); CREATININE, SERUM 0.74 mg/dL (0.57-1.11); POTASSIUM 3.8 mmol/L (3.5-5.1)
[~2022-12-26] MED LIST changes: +ACETAMINOPHEN 1000 MG/100 ML 0 ML IV ONE; +ACETAMINOPHEN 1000 MG/100 ML 100 ML IV ONE; +ACETAMINOPHEN/CODEINE 300MG - 30MG TAB ONE; -BUPIVACAINE HCL 0.5% INJ 30 ML VIAL INJ ONE; +DEXAMETHASONE SOD PHOS INJ 4 MG/ML SDV ONE; -DEXAMETHASONE SOD PHOS INJ 4 MG/ML VIAL ONE; -KETOROLAC TROMETHAMINE 30 MG/ML VIAL ONE; +LACTATED RINGER'S 1,000 ML ONE; -NEOSTIGMINE 1 MG/ML 10ML VIAL ONE; -VANCOMYCIN 1GM/NS 250 ML 250 ML ONE
[2022-12-26] MEDS: FENTANYL CITRATE/PF 100MCG/2 ML INJ ONE ×2 (10:50→11:00)
[2022-12-26 11:35] VITALS: BP 149/84; PULSE 73; RESP 16; O2SAT 98
== END | disposition home or self-care (01) ==
LOC: OR 08:02
PROVIDERS: ATTEND Specialist
DX: G56.03 Carpal tunnel syndrome, bilateral upper limbs (principal); J45.909 Unspecified asthma, uncomplicated; E11.9 Type 2 diabetes mellitus without complications; R03.0 Elevated blood-pressure reading, without diagnosis of hypertension; Z88.0 Allergy status to penicillin; Z01.810 Encounter for preprocedural cardiovascular examination; Z01.812 Encounter for preprocedural laboratory examination; Z01.818 Encounter for other preprocedural examination; Z79.84 Long term (current) use of oral hypoglycemic drugs; Z79.899 Other long term (current) drug therapy; Z68.31 Body mass index [BMI] 31.0-31.9, adult
CPT/HCPCS: 29848; 36415; 71046; 80048; 85025; 93005; J0131; J0690; J1100; J2001; J2405; J2704; J3010; J7121

== ENCOUNTER → 2025-04-11 | Day surgery (SDC) | payer MEDICARE ==
[2025-04-09 11:36] LABS: BASOPHILS % 0.7 % (0.0-1.0); EOSINOPHILS % 2.1 % (0.0-6.0); LYMPHOCYTES % 33.5 % (18.0-39.1); MONOCYTES % 8.1 % (4.4-11.3); NEUTROPHILS % 55.3 % (38.7-80.0); RED CELL DISTRIBUTION WIDTH 14.2 % (11.7-14.4)
[2025-04-09 12:03] LABS: EST GLOMERULAR FILTRATION RATE 84.0 ML/MIN (>=60)
[~2025-04-11] MED LIST changes: -ACETAMINOPHEN 1000 MG/100 ML 0 ML IV ONE; -ACETAMINOPHEN 1000 MG/100 ML 100 ML IV ONE; -ACETAMINOPHEN/CODEINE 300MG - 30MG TAB ONE; +ALLERGY RELIEF180 MG PO; +ARICEPT10 MG PO; +ATIVAN1 MG PO; +CELEBREX200 MG PO; -DEXAMETHASONE SOD PHOS INJ 4 MG/ML SDV ONE; +ESTRADIOL1 MG PO; -LACTATED RINGER'S 1,000 ML ONE; +LASIX20 MG PO; +LIDOCAINE HCL 10 MG/ML VIAL INJ ONE; +METOCLOPRAMIDE HCL 10 MG/2ML VIAL ONE; +ONDANSETRON ODT8 MG PO; -POVIDONE IODINE 0.05% 0.05 % ML PO ONE; +SCOPOLAMINE 1 MG PATCH ONE; -SEVOFLURANE INHAL SOLN 250 ML PEN BTL ONE; +TERBINAFINE HC250 MG PO; +TRULICITY3 MG/0.5 M SQ; +VENTOLIN HFA18 GM INH; +[UNRECOGNIZED DRUG - MIXTURE] PO
[2025-04-11] MEDS: CLINDAMYCIN PHOS 900MG/ 50ML 50 ML IV ONE (07:52)
[2025-04-11] MEDS: LACTATED RINGER'S 1,000 ML ONE (07:52)
[2025-04-11 10:19] VITALS: TEMP 98.2
[2025-04-11] MEDS: ONDANSETRON HCL INJ 2MG/ML 2ML 2 MG/ML VIAL IV ONE (10:45)
[2025-04-11] MEDS: METOCLOPRAMIDE HCL 10 MG/2ML VIAL IV ONE (10:55)
[2025-04-11] MEDS: FENTANYL CITRATE/PF 100MCG/2 ML INJ IV ONE (11:04)
[2025-04-11 11:30] VITALS: BP 135/77; PULSE 80; RESP 16; O2SAT 96
== END | disposition home or self-care (01) ==
LOC: OR 05:52
PROVIDERS: ATTEND Podiatrist Foot Surgery
DX: M19.071 Primary osteoarthritis, right ankle and foot (principal); M20.41 Other hammer toe(s) (acquired), right foot; L60.0 Ingrowing nail; I11.0 Hypertensive heart disease with heart failure; I50.9 Heart failure, unspecified; E78.5 Hyperlipidemia, unspecified; E11.9 Type 2 diabetes mellitus without complications; E66.01 Morbid (severe) obesity due to excess calories; K21.9 Gastro-esophageal reflux disease without esophagitis; G89.29 Other chronic pain; F03.90 Unspecified dementia, unspecified severity, without behavioral disturbance, psychotic disturbance, mood disturbance, and anxiety; F41.9 Anxiety disorder, unspecified; F32.A Depression, unspecified; Z88.0 Allergy status to penicillin; Z01.810 Encounter for preprocedural cardiovascular examination; Z01.812 Encounter for preprocedural laboratory examination; Z01.818 Encounter for other preprocedural examination; Z79.84 Long term (current) use of oral hypoglycemic drugs; Z79.85 Long-term (current) use of injectable non-insulin antidiabetic drugs; Z79.899 Other long term (current) drug therapy
CPT/HCPCS: 11750; 28755; 36415 ×2; 71046; 76000; 80048; 82948; 85025; 93005; C1713 ×2; J2003; J2405; J2704; J2765; J3010; J7121

== ENCOUNTER → 2025-04-25 | Day surgery (SDC) | payer MEDICARE ==
[2025-04-22 12:38] LABS: BASOPHILS % 0.7 % (0.0-1.0); EOSINOPHILS % 1.8 % (0.0-6.0); LYMPHOCYTES % 38.2 % (18.0-39.1); MONOCYTES % 10.1 % (4.4-11.3); NEUTROPHILS % 48.8 % (38.7-80.0); RED CELL DISTRIBUTION WIDTH 14.2 % (11.7-14.4)
[~2025-04-25] MED LIST changes: +ACETAMINOPHEN 1000 MG/100 ML 100 ML IV ONE; +DEXAMETHASONE SOD PHOS INJ 4 MG/ML SDV ONE; +HYDROMORPHONE 2MG/ML ONE; +KETOROLAC TROMETHAMINE 30 MG/ML VIAL ONE; -LIDOCAINE HCL 10 MG/ML VIAL INJ ONE; -METOCLOPRAMIDE HCL 10 MG/2ML VIAL ONE; +MIDAZOLAM HCL 2 MG/2 ML VIAL ONE; -SCOPOLAMINE 1 MG PATCH ONE; +SEVOFLURANE INHAL SOLN 250 ML PEN BTL ONE
[2025-04-25] MEDS: LACTATED RINGER'S 1,000 ML ONE (10:18)
[2025-04-25] MEDS: CEFAZOLIN SODIUM 0 GM ONE (10:18)
[2025-04-25] MEDS: CLINDAMYCIN PHOS 900MG/ 50ML 50 ML IV ONE (10:19)
[2025-04-25 12:25] VITALS: TEMP 99
[2025-04-25] MEDS: HYDROMORPHONE 1MG/1ML INJ ONE (12:50)
[2025-04-25] MEDS: LORAZEPAM INJ 2 MG/ML VIAL ONE (13:05)
[2025-04-25] MEDS: ONDANSETRON HCL INJ 2MG/ML 2ML 2 MG/ML VIAL ONE (14:13)
[2025-04-25 14:20] VITALS: BP 121/98; PULSE 92; RESP 16; O2SAT 95
== END | disposition home or self-care (01) ==
LOC: OR 07:06
PROVIDERS: ATTEND Podiatrist Foot Surgery
DX: T84.89XA Other specified complication of internal orthopedic prosthetic devices, implants and grafts, initial encounter (principal); M97.8XXA Periprosthetic fracture around other internal prosthetic joint, initial encounter; Y83.8 Other surgical procedures as the cause of abnormal reaction of the patient, or of later complication, without mention of misadventure at the time of the procedure; M19.90 Unspecified osteoarthritis, unspecified site; J45.909 Unspecified asthma, uncomplicated; E11.9 Type 2 diabetes mellitus without complications; E78.00 Pure hypercholesterolemia, unspecified; K21.9 Gastro-esophageal reflux disease without esophagitis; D64.9 Anemia, unspecified; M54.12 Radiculopathy, cervical region; K44.9 Diaphragmatic hernia without obstruction or gangrene; Z79.891 Long term (current) use of opiate analgesic; Z79.84 Long term (current) use of oral hypoglycemic drugs; Z79.85 Long-term (current) use of injectable non-insulin antidiabetic drugs; Z79.83 Long term (current) use of bisphosphonates; Z79.2 Long term (current) use of antibiotics; Z79.899 Other long term (current) drug therapy; Z68.31 Body mass index [BMI] 31.0-31.9, adult; Z88.0 Allergy status to penicillin; Z01.812 Encounter for preprocedural laboratory examination
CPT/HCPCS: 28505; 36415 ×2; 76000; 82948; 85025; 87071; 87075; 87205; 88300; C1713; J0131; J1100; J1171 ×2; J2003; J2060; J2250; J2405; J2704; J3010; J7121; J1885